=== PATIENT | male | born 1985 | race Asian ===

== ENCOUNTER 2022-01-21 12:57 | Emergency (ER) | payer BC ==
--- OUTSIDE RECORDS SUMMARY | 2022-01-21 13:00 | XMS REPORT | Continuity of Care Document ---
:[address] [facility] t Address [address] [place] [address] Care Team Providers Name Role Phone Ezra Graves Attending Clinician Unavailable Problems This patient has no known problems. Allergies, Adverse Reactions, Alerts This patient has no known allergies or adverse reactions. Medications Ordered Filled Start Stop Current Ordering Indication Dosage Frequency Signature Comments Components Source Medication Medication Date Date Medication? Clinician (SIG) Name Name Kevin Brown Yes Ezra 1 tablet Common Graves in the [facility] Procedures This patient has no known procedures. Encounters Start End Encounter Admission Attending Care Care Encounter Source Date/Time Date/Time Type Type Clinicians Facility Department ID 2021-10-02 Outpatient Graves, [facility] [id number] Common 11:24:29 Ezra [id number] [facility] 2021-10-02 Outpatient Graves, [facility] [id number] Common 11:17:10 Ezra [id number] [facility] 2020-05-31 2020-05-31 Outpatient [facility] [id number] Common 00:00:00 00:00:00 [facility] 2020-02-10 2020-02-10 Outpatient Dagoberto Arenast [id number] Common 08:04:00 08:04:[address] [facility] 2020-02-07 2020-02-07 Outpatient Dagoberto Arenast [id number] Common 16:00:00 16:00:[address] [facility] 2019-06-20 2019-06-20 [facility] [id number] Common 11:30:00 11:30:[address] [facility] 2019-06-09 2019-06-09 Out[facility] [id number] Common 13:45:00 13:45:[address] [facility] 2019-02-23 2019-02-23 [facility] [id number] Common 09:47:00 09:47:[address] [facility] Results This patient has no known results.
--- NOTE | 2022-01-21 15:12 | EDPHYS ---
Physician Documentation [facility] Name: Terrence Ty Age: 36 yrs Sex: Male : 1985 Arrival Date: 01/21/2022 Time: 13:00 Bed 19 Private MD: ED Physician Rakan Valdes HPI: 01/21 14:13 This 36 yrs old Male presents to ER via Ambulatory with complaints of Fever, High pm1 heart rate. 14:13 The patient presents with sore throat. pm1 14:13 Onset: The symptoms/episode began/occurred 4 day(s) ago. Severity of symptoms: in the pm1 emergency department the symptoms are unchanged. Modifying factors: The symptoms are alleviated by over the counter medications, NSAIDs, Tylenol, Patient's oral intake status: good. Associated signs and symptoms: Pertinent positives: cough, fever, Pertinent negatives earache, shortness of breath. The patient has been recently seen by a physician: yesterday, with similar presenting complaints, negative flu, covid, strep, rsv. Patient presenting to the ER today due to the tachycardia with his fever. Historical: - Allergies: 13:29 No Known Allergies; ww - Home Meds: 13:29 None [Active]; ww - PMHx: 13:29 None; ww - PSHx: 13:29 None; ww - Immunization history:: Adult Immunizations up to date. - Social history:: Smoking status: Patient reports the use of cigarette tobacco products, denies chronic smoking, but will smoke occasionally. ROS: 14:13 Eyes: Negative for injury, pain, redness, and discharge. pm1 14:13 Neck: Negative for injury, pain, and swelling, Cardiovascular: Negative for chest pain, palpitations, and edema. 14:13 Abdomen/GI: Negative for abdominal pain, nausea, vomiting, diarrhea, and constipation, Back: Negative for injury and pain, MS/Extremity: Negative for injury and deformity, Skin: Negative for injury, rash, and discoloration, Neuro: Negative for headache, weakness, numbness, tingling, and seizure. 14:13 Constitutional: Positive for fever, Negative for poor PO intake. 14:13 ENT: Positive for sore throat. 14:13 Respiratory: Positive for cough, Negative for shortness of breath. 14:13 All other systems are negative. Exam: 14:13 Constitutional: This is a well developed, well nourished patient who is awake, alert, pm1 and in no acute distress. Head/Face: Normocephalic, atraumatic. 14:13 Back: No spinal tenderness. No costovertebral tenderness. Full range of motion. Skin: Warm, dry with normal turgor. Normal color with no rashes, no lesions, and no evidence of cellulitis. MS/ Extremity: Pulses equal, no cyanosis. Neurovascular intact. Full, normal range of motion. 14:13 ENT: Mouth: Lips: normal, moist, Oral mucosa: normal, pink and intact, moist, Posterior pharynx: Tonsils: are normal in appearance, no enlargement, no erythema, no exudate, no ulcerations, erythema, that is moderate, peritonsillar mass, is not appreciated. 14:13 Cardiovascular: Rate: tachycardic, Rhythm: regular, Pulses: no pulse deficits are appreciated. 14:13 Respiratory: Exam negative for acute changes, respiratory distress, shortness of breath, Breath sounds: are clear throughout. 14:13 Neuro: Exam negative for acute changes, Orientation: is normal, Mentation: is normal, Motor: is normal, moves all fours. Vital Signs: 13:27 BP 119 / 84; Pulse 108; Resp 20; Temp 101.2; Pulse Ox 99% ; Weight 88 kg; Height 5 ft. ww 11 in. (180.34 cm); Pain 0/10; 13:27 Body Mass Index 27.06 (88.00 kg, 180.34 cm) ww MDM: 14:13 Patient medically screened. pm1 14:13 ED course: Patient was seen at a clinic yesterday and had COVID, flu, RSV, strep pm1 performed. Patient reports NEGATIVE, however he reports that there is some questionable collection of them. I offered to repeat those tests but he refused. Patient reports that his main concern was tachycardia that I attributed to his current fever. Patient has not taken any antipyretics today. Offered patient chest x-ray due to cough and fever. Patient refused. Therefore discussed with him treatment plan to administer medications and reevaluate his vitals and symptoms. 15:08 Data reviewed: vital signs. Data interpreted: Pulse oximetry: on room air is 99 %. pm1 Interpretation: normal. 15:08 ED course: Patient did not receive his medications and wants to go home. Patient does pm1 not want to wait for the medications and plans to take OTC medications at home. Administered Medications: 15:18 Not Given (Patient Eloped): Ketorolac 60 mg IM once vg1 15:18 Not Given (Patient Eloped): Decadron (dexamethasone) 10 mg IM once vg1 Disposition Summary: 01/21/22 15:11 Discharge Ordered Location: Home pm1 Problem: new pm1 Symptoms: are unchanged pm1 Condition: Stable pm1 Diagnosis - Acute pharyngitis, unspecified pm1 Followup: pm1 - With: Emergency Department - When: As needed - Reason: Worsening of condition Followup: pm1 - With: Private Physician - When: 2 - 3 days - Reason: Recheck today's complaints, Continuance of care, Re-evaluation by your physician Discharge Instructions: - Discharge Summary Sheet pm1 - Pharyngitis pm1 Forms: - Medication Reconciliation Form pm1 - Thank You Letter pm1 - Antibiotic Education pm1 - Prescription Opioid Use pm1 Signatures: Galo Bermudez, [employer] INSPECTOR pm1 Marla Wilson RN RN ww Archana Goel RN vg1
--- NOTE | 2022-01-21 15:12 | ER ---
Nurse's Notes [facility] Name: Terrence Ty Age: 36 yrs Sex: Male : 1985 Arrival Date: 01/21/2022 Time: 13:00 Bed 19 Private MD: Diagnosis: Acute pharyngitis, unspecified Presentation: 01/21 13:27 Chief complaint: Patient states: Fevers of 104 and 105 that started on Thursday with a ww sore throat. Saw PCP yesterday and tested negative COVID. flu and strep. Heart rate elevated 120s. Coronavirus screen: Client denies travel out of the [place] in the last 14 days. Ebola Screen: Patient denies travel to an Ebola-affected area in the 21 days before illness onset. Initial Sepsis Screen: Does the patient meet any 2 criteria? Temp <36.0*C (96.8*F)) or > 38.3*C (100.9*F). HR > 90 bpm. Does the patient have a suspected source of infection? No. Patient's initial sepsis screen is negative. Risk Assessment: Do you want to hurt yourself or someone else? Patient reports no desire to harm self or others. Onset of symptoms was January 17, 2022. 13:27 Acuity: LEBRON 3 ww 13:27 Method Of Arrival: Ambulatory ww Triage Assessment: 13:29 General: Appears in no apparent distress. Behavior is calm, cooperative. ww Historical: - Allergies: 13:29 No Known Allergies; ww - Home Meds: 13:29 None [Active]; ww - PMHx: 13:29 None; ww - PSHx: 13:29 None; ww - Immunization history:: Adult Immunizations up to date. - Social history:: Smoking status: Patient reports the use of cigarette tobacco products, denies chronic smoking, but will smoke occasionally. Assessment: 15:10 Reassessment: Pt stated "i think im just going to go home" provider notified. vg1 Vital Signs: 13:27 BP 119 / 84; Pulse 108; Resp 20; Temp 101.2; Pulse Ox 99% ; Weight 88 kg; Height 5 ft. ww 11 in. (180.34 cm); Pain 0/10; 13:27 Body Mass Index 27.06 (88.00 kg, 180.34 cm) ED Course: 13:00 Patient arrived in ED. mr 13:29 Triage completed. ww 13:29 Arm band placed on. ww 13:55 Galo Bermudez NP is PHCP. pm1 13:55 Rakan Valdes MD is Attending Physician. pm1 14:48 Archana Goel, RN is Primary Nurse. vg1 Administered Medications: 15:18 Not Given (Patient Eloped): Ketorolac 60 mg IM once vg1 15:18 Not Given (Patient Eloped): Decadron (dexamethasone) 10 mg IM once vg1 Outcome: 15:11 Discharge ordered by . pm1 15:20 Discharged to home ambulatory. vg1 15:20 Condition: good 15:21 Patient left the ED. vg1 Signatures: Shira Veronica mr Galo Bermudez NP TOOL ROOM LATHE OPERATOR pm1 Archana Goel, RN RN vg1 Marla Wilson RN RN
[2022-01-21 15:32] VITALS: BP 119/84; TEMP 101.2; O2SAT 99
== END 2022-01-21 15:21 | disposition home or self-care (01) ==
LOC: ER 12:57
DX: J02.9 Acute pharyngitis, unspecified (principal); R50.9 Fever, unspecified; F17.210 Nicotine dependence, cigarettes, uncomplicated
CPT/HCPCS: 99281